=== PATIENT | male | born 1975 | race Caucasian/White ===

== ENCOUNTER 2016-07-14 01:59 | Emergency (ER) | payer SELFPAY ==
[~2016-07-14] VITALS: Ht 177.8 cm; Wt 86.4 kg
[2016-07-14 02:04] VITALS: BP 161/114; PULSE 89; RESP 20; O2SAT 98
[2016-07-14 02:13] VITALS: BP 157/110; PULSE 95; RESP 14; O2SAT 99
--- NOTE | 2016-07-14 02:13 | ED.REPORT ---
HPI-General Illness Date of Service Jul 14, 2016 ED Provider: Luis Fernando Gifford MD 41 year old male with history of childhood ulcers, depression, and previous suicide attempt presents to ED complaining of hematemesis and abdominal pain. This began this morning following his first time smoking heroin the previous night, and has continued all day. He vehemently denies any previous illegal drug use. The patient denies ever injecting heroin before and reports that he does not drink alcohol. He reports that sores on arms are from biting ants infesting his house. The patient does not take any ulcer related medication, but does take Seroquel at night. Nursing Notes Stated Complaint: POSS OD Chief Complaint: Substance Abuse Nursing Notes Reviewed: Yes Allergies: Coded Allergies: promethazine (Verified Adverse Reaction, Severe, Nausea,Vomiting, 07/14/16) Scheduled Omeprazole (Omeprazole) 20 Mg Tablet.dr 20 MG PO BID Quetiapine Fumarate (Seroquel) 200 Mg Tablet 200 MG PO HS Scheduled PRN Ondansetron (Zofran) 8 Mg Tablet 8 MG PO Q4H PRN PRN For Nausea Ondansetron ODT (Ondansetron ODT) 8 Mg Tab.rapdis 8 MG PO QID PRN PRN For Nausea General Time Seen by MD: 02:12 Chief Complaint Other (Hematemesis) Hx Obtained From: Patient Arrived By: Walk-in Sudden in Onset?: Yes Onset Occurred: 9 - 12 hours ago Context of Onset: Other (Smoking Heroin ) Symptom Duration: Since onset Location: : Abdomen Severity: Current: Moderate Severity: Maximum: Moderate Recent Healthcare: No recent doctor visit Similar Sx Previous: No Past Medical History Past Medical History Childhood ulcers. Depression Previous suicide attempt Past Surgical History none reported Smoking History Unknown if Ever Smoker Social History Alcohol Use: Denies alcohol use Drug Use: THC Ambulatory Status Independent Review of Systems Sores on arms. Full Review of Systems Respiratory: Denies: Non-productive cough GI: Reports: Abdominal pain, Hematemesis, Nausea, Vomiting Musculoskeletal: Denies: Back pain, Neck pain Complete sys rev & neg: except as marked. Physical Exam Vital Signs Vital Signs Date Time Temp Pulse Resp B/P Pulse Ox O2 Delivery O2 Flow Rate FiO2 07/14/16 05:55 36.7 103 14 129/84 100 Room Air 07/14/16 02:13 95 14 157/110 99 Room Air 07/14/16 02:04 36.2 89 20 161/114 98 Room Air Initial VS: Reviewed General/Constitutional: Awake, Alert, Cooperative Head / Eyes: Atraumatic, Normocephalic ENT: Airway patent, Mucous membranes moist, Pharynx NL Neck: Atraumatic, Full range of motion Respiratory / Chest: Atraumatic Hyperventilating. Cardiovascular: Regular rhythm, Heart sounds NL, No gallop, No murmurs, No rubs Heart Rate / Rhythm: Positive: Tachycardia Abdomen: Atraumatic Tenderness/Guarding/Rebound: Positive: Tender epigastric Hematemesis in bucket. Upper Extremities Upper Extremity / MS: Atraumatic, Full range of motion Lower Extremity / Pelvis / MS: Atraumatic, Full range of motion Skin: Warm, Dry Skin is pale. Diaphoresis. Excoriations on arms claimed to be sores and not pick reyes. Neurologic: Oriented X3, Speech NL, No motor deficits, No sensory deficits Psychiatric: Affect NL Interpretation & Diagnostics Lab Results Interpretation Result Diagram: 07/14/16 0330 07/14/16 0330 Test 07/14/16 03:30 07/14/16 05:25 White Blood Count 17.0th/mm3 (3.8-10.1) Red Blood Count 5.64mil/mm3 (4.40-5.80) Hemoglobin 17.4g/dL (13.8-17.2) Hematocrit 48.4% (41.0-50.0) Mean Corpuscular Volume 85.8fL (81-100) Mean Corpuscular Hemoglobin 30.9pg (27.0-35.0) Mean Corpuscular Hemoglobin Concent 36.0% (32.0-37.0) Red Cell Distribution Width 12.8% (12.3-15.4) Platelet Count 272bil/L (150-400) Neutrophils (%) (Auto) 90.0% (40-74) Lymphocytes (%) (Auto) 6.8% (14-46) Monocytes (%) (Auto) 2.9% (4-12) Eosinophils (%) (Auto) 0% (0-5) Basophils (%) (Auto) 0.1% (0-3) Prothrombin Time 10.9sec (8.1-12.5) Prothromb Time International Ratio 1.02ratio Sodium Level 142mEq/L (134-144) Potassium Level 4.3mEq/L (3.5-5.2) Chloride Level 100mEq/L (97-108) Carbon Dioxide Level 19mmol/L (18-29) Blood Urea Nitrogen 25mg/dL (6-24) Creatinine 1.11mg/dL (0.76-1.27) Estimat Glomerular Filtration Rate 78mL/min (>59) Glucose Level 138mg/dL (60-99) Calcium Level 10.3mg/dL (8.5-10.1) Magnesium Level 2.1mg/dL (1.6-2.6) Total Bilirubin 0.9mg/dL (0.0-1.2) Aspartate Amino Transf (AST/SGOT) 25U/L (0-50) Alanine Aminotransferase (ALT/SGPT) 32U/L (0-44) Alkaline Phosphatase 104U/L (25-150) Troponin T 0.010ug/L (0.0-0.011) Total Protein 8.3g/dL (6.4-8.4) Albumin 5.1g/dL (3.4-5.0) Hold Carrion Top Tube Received (Received) Urine Color Dark yellow (YELLOW) Urine Appearance Hazy (CLEAR,HAZY) Urine pH 5.5 (5.0-8.0) Urine Specific [place] 1.035 (1.003-1.035) Urine Protein 30mg/dL (NEG,TRACE) Urine Glucose (UA) Negativemg/dL (NEGATIVE) Urine Ketones >80mg/dL (NEGATIVE) Urine Occult Blood Negative (NEGATIVE) Urine Nitrite Negative (NEGATIVE) Urine Bilirubin Negative (NEGATIVE) Urine Urobilinogen 1.0mg/dL (NORMAL) Urine Leukocyte Esterase Negative (NEGATIVE) Urine RBC 0-2/hpf (0-2) Urine WBC 0-5/hpf (0-5) Urine Epithelial Cells Occasional/hpf (NONE-MOD) Urine Crystals Amorphous urates (NONE Urine Bacteria Few/hpf (NONE-FEW) Urine Hyaline Casts Rare/lpf (NONE) Urine Granular Casts None seen (NONE SEEN) Urine Waxy Casts None seen (NONE SEEN) Urine Red Blood Cell Casts None seen (NONE SEEN) Urine White Blood Cell Casts None seen (NONE SEEN) Urine Mucus Present (None Seen) Urine Trichomonas None seen (NONE SEEN) Urine Yeast None (NONE SEEN) Urinalysis Comment None Urine Culture Reflexed Not indicated X-Ray Chest Interpretation Chest Xray Interpretation: no acute findings Interpretation / Wet Read by: Wet read ED physician Re-Eval/Medical Decision Med Decision/Clinical Course 41-year-old male presents vomiting with some mixed bloody vomitus, apparent Smiley-Odom bleeding. Hemoglobin is above normal. He smokes heroin for the first time ever he says, and for the last time ever also he says. Urine tox does not reveal any other significant findings. He is improved here with Zofran and fluids and IV Protonix. Bleeding appears to be self-limited. He is able to take fluids without pain and without vomiting. Home with Zofran, twice a day omeprazole, and follow-up with PCP. Source of Hx: Old records Time of Eval: 05:20 Patient Status: Condition improved Re-Evaluation/Progress Note: Rechecked patient. Patient condition has improved. Discussed plan for discharge. The pt understands and agrees with the plan. All questions are addressed at this time. Counseled Regarding: Diagnosis, Lab results, Need for follow-up, When/why to return to ED Discharge & Departure Primary Impression: Gastro-esophageal laceration-hemorrhage syndrome Additional Impressions: Substance abuse Gastritis Disposition: Home Discharge Condition All VS Reviewed: Yes Condition: Stable Patient Instructions: Gastritis (ED), Narcotic Abuse (ED) Additional Instructions: Take omeprazole twice daily. Ondansetron four times daily if needed for nausea. Never use heroin again. Follow-up with your doctor in the office. Return if any immediate issues. Referrals: [facility] Res[facility] Scribe Attestation Portions of this note were transcribed by Dameon Nicholas and Speedy Erwin. I, Dr. Gifford personally performed the history, physical exam and medical decision -making; I reviewed and confirmed the accuracy of the information in the transcribed note. Signed by: Dameon Nicholas and Avila Garcia, 2016 and 05:40. copies to: [facility] Res[facility] Luis Fernando Gifford MD Jul 14, 2016 02:13 Dameon Nicholas Jul 14, 2016 02:33 SPEEDY ERWIN Jul 14, 2016 04:19
[2016-07-14] MEDS ORDERED: 0.9% Sodium Chloride 1,000 ML IV ONE (02:28)
[2016-07-14] MEDS ORDERED: Pantoprazole Inj 80 MG, Pharmacy To Mix 1 EA in 0.9% Sodium Chloride 80 ML IV ONE ×2 (02:30)
[2016-07-14] MEDS ORDERED: Pantoprazole 4 mg/mL 10 mL Inj IVPUSH ONE (02:30)
[2016-07-14] MEDS ORDERED: HYDROmorphone 1 mg/mL Inj IVPUSH PRN (02:55)
[2016-07-14 03:39] LABS: BASOPHILS % (AUTO) 0.1 % (0-3); EOSINOPHILS % (AUTO) 0 % (0-5); MONOCYTES % (AUTO) 2.9 % (4-12); Mean Corpuscular Hemoglobin 30.9 pg (27.0-35.0); Mean Corpuscular Volume 85.8 fL (81-100); Platelet Count 272 bil/L (150-400)
[2016-07-14 03:55] LABS: INR 1.02 ratio
[2016-07-14 04:01] LABS: TROPONIN T 0.01 ug/L (0.0-0.011)
[2016-07-14] MEDS ORDERED: Ondansetron 2 mg/mL 2 mL Inj IVPUSH ONE (04:10)
[2016-07-14 04:13] LABS: Magnesium 2.1 mg/dL (1.6-2.6)
[2016-07-14] MEDS ORDERED: ZOF8 PO (04:31)
[2016-07-14] MEDS ORDERED: QUET200T PO (04:31)
[2016-07-14] MEDS ORDERED: OMEP20TA86 PO (05:31)
[2016-07-14] MEDS ORDERED: ONDA8TAB10 PO (05:31)
[2016-07-14 05:43] LABS: APPEARANCE,URINE HAZY (CLEAR,HAZY); COLOR,URINE DARK YELLOW (YELLOW); PH,URINE 5.5 (5.0-8.0)
[2016-07-14 05:44] LABS: OCCULT BLOOD,URINE NEGATIVE (NEGATIVE)
[2016-07-14] MEDS ORDERED: Ondansetron 8 mg ODT Tablet PO ONE (05:50)
[2016-07-14 05:55] VITALS: BP 129/84; PULSE 103; RESP 14; O2SAT 100
--- NOTE | 2016-07-14 08:17 | DRSVH ---
PROCEDURE: X-RAY CHEST ONE VIEW, PORTABLE ([id number]) INDICATIONS: 41-year-old male with vomiting and prior history of upper GI bleed. TECHNIQUE: One view of the chest was acquired. COMPARISON: None. FINDINGS: Surgical changes and devices: None. Lungs and pleura: No pleural effusions or pneumothorax. Lungs are clear. Mediastinum: Mediastinal contours appear normal. Heart size is normal. Bones and chest wall: No suspicious bony lesions. Overlying soft tissues appear unremarkable. IMPRESSION: No acute cardiopulmonary disease. Dictated by: Carson REYES Interpreted: Leslee Vila MD on 07/14/2016 at 8:16 Transcribed by: RENA on 07/14/2016 at 8:16 Approved by: Leslee Vila M.D. on 07/14/2016 at 15:59
== END 2016-07-14 05:57 | disposition home or self-care (01) ==
LOC: SED 01:59
DX: K22.6 Gastro-esophageal laceration-hemorrhage syndrome (principal); F19.10 Other psychoactive substance abuse, uncomplicated; K29.70 Gastritis, unspecified, without bleeding; Z88.8 Allergy status to other drugs, medicaments and biological substances; Z91.5 Personal history of self-harm
CPT/HCPCS: 36415; 71010; 80053; 81000; 81002; 83735; 84484; 85025; 85610; 96361; 96374; 96375; 99285; J1170; J2060; J2405; J7030